=== PATIENT | male | born 1955 | race Two or more races ===

== ENCOUNTER 2021-09-09 16:44 | Emergency (ER) | payer MEDICARE, MEDICAID ==
[~2021-09-09] VITALS: Ht 172.7 cm; Wt 68.0 kg
[2021-09-09] MEDS ORDERED: METHYLPREDNISOLONE SOD SUCC 125 MG/2 ML VIAL IV STA (17:35)
[2021-09-09] MEDS ORDERED: IPRATROPIUM BROMIDE (0.02%) 0.5MG/2.5ML NEB HHN STA (17:35)
[2021-09-09] MEDS ORDERED: ALBUTEROL (0.083%) 2.5MG/3ML NEB HHN STA (17:35)
[2021-09-09 19:12] LABS: OPIATES URINE SCREEN NEGATIVE (NEGATIVE)
[2021-09-09 19:13] LABS: *AMPHETAMINES SCREEN URINE NEGATIVE (NEGATIVE); *BARBITURATES SCREEN URINE NEGATIVE (NEGATIVE); *BENZODIAZEPINES SCREEN URINE NEGATIVE (NEGATIVE); *COCAINE SCREEN URINE PRESUMTIVE POSITIVE (NEGATIVE); CANNABINOID URINE SCREEN NEGATIVE (NEGATIVE); PHENCYCLIDINE URINE SCREEN NEGATIVE (NEGATIVE)
[2021-09-09 19:14] LABS: METHADONE URINE SCREEN NEGATIVE (NEGATIVE)
[2021-09-09] MEDS ORDERED: ALBU6.7H9 INH (20:44)
[2021-09-09] MEDS ORDERED: P50 MT (20:44)
[2021-09-09 21:30] VITALS: BP 131/83
== END 2021-09-09 21:30 | disposition home or self-care (01) ==
LOC: ER 16:44 → EDBD 16:44 → ER 21:30
DX: J44.1 Chronic obstructive pulmonary disease with (acute) exacerbation (principal)
CPT/HCPCS: 70450; 71045; 80305; 94640; 96374; 99285; J2930; Z7610